=== PATIENT | female | born 1945 | race Two or more races ===

== ENCOUNTER 2016-11-11 15:39 | Inpatient (IN) | payer MEDICARE, OTHER ==
[~2016-11-11] VITALS: Ht 157.5 cm; Wt 90.5 kg
[~2016-11-11 15:39] MED LIST: ASPI-515 PO; Atorvastatin Calcium PO; Carvedilol PO; HUM100IN4 SQ-INSULIN; HUM100VI6 SC; INSU100I18 SC; INSU100V5 SQ-INSULIN; OMEP-110 PO; OMEP40CA6 PO; POLY17PO5 PO; SITA100T PO; TICA90TA PO; TRAM50TA2 PO; [UNRECOGNIZED DRUG - OTHER] PO; [UNRECOGNIZED DRUG - REMARK] PO
[2016-11-11] MEDS ORDERED: DEXTROSE 10% 1,000 ML IV SCH (16:22)
[2016-11-11 16:27] LABS: HEMOGLOBIN 12.4 g/dL (11.7-16.4)
[2016-11-11] MEDS ORDERED: SODIUM CHLORIDE FLUSH 10ML SYR IVF ONE (16:30)
[2016-11-11 16:39] LABS: BLOOD UREA NITROGEN 34 mg/dL (7-18)
[2016-11-11] MEDS ORDERED: INSU100I17 SQ-INSULIN ×2 (16:48)
[2016-11-11] MEDS ORDERED: LISI5TAB7 PO (16:50)
[2016-11-11] MEDS ORDERED: SITA100T PO (16:50)
[2016-11-11] MEDS ORDERED: SODIUM CHLORIDE FLUSH 10ML SYR IVF PRN (18:30)
[2016-11-11] MEDS ORDERED: POLYETHYLENE GLYCOL 17 GM PACKET PO PRN (20:00)
[2016-11-11] MEDS ORDERED: DOCUSATE 100 MG CAPSULE PO PRN (20:00)
[2016-11-11] MEDS ORDERED: HYDROcodone/APAP 5/325 TABLET PO PRN (20:00)
[2016-11-11] MEDS ORDERED: BISACODYL 10 MG SUPP PR PRN (20:00)
[2016-11-11] MEDS ORDERED: ONDANSETRON 2MG/ML, 2ML IVP PRN (20:00)
[2016-11-11] MEDS ORDERED: ENALAPRILAT 1.25 MG/ML, 2ML IVPush PRN (20:00)
[2016-11-11] MEDS ORDERED: ACETAMINOPHEN 325 MG TABLET PO PRN (20:00)
[2016-11-11] MEDS ORDERED: PROMETHAZINE 25 MG/ML, 1ML IM PRN (20:00)
[2016-11-11] MEDS ORDERED: LABETALOL 5MG/ML, 20ML IV PRN (20:00)
[2016-11-11 20:28] LABS: IS PT STATUS REG ER OR PRE ER? NO
[2016-11-11] MEDS: DEXTROSE 5% 1,000 ML IV SCH (21:05)
[2016-11-11] MEDS: ENOXAPARIN 40 MG/0.4 ML SQ SCH (21:06)
[2016-11-11] MEDS: TICAGRELOR 90 MG TABLET PO SCH (21:06)
[2016-11-11] MEDS: CEFTRIAXONE PMX 1GM/50ML 50 ML IV SCH (21:06)
[2016-11-11] MEDS: LISINOPRIL 5 MG TABLET PO SCH (21:06)
[2016-11-12 01:51] VITALS: BP 135/57
[2016-11-12 02:24] LABS: HEMOGLOBIN 11.3 g/dL (11.7-16.4)
[2016-11-12 02:37] LABS: ASPARTATE AMINO TRANSFERASE 12 U/L (15-37); BLOOD UREA NITROGEN 33 mg/dL (7-18)
[2016-11-12 02:41] LABS: IS PT STATUS REG ER OR PRE ER? NO
[2016-11-12] MEDS: DEXTROSE 5% 1,000 ML IV SCH (03:36)
[2016-11-12] MEDS: CARVEDILOL 3.125 MG TABLET PO SCH ×2 (06:29→17:16)
[2016-11-12 06:34] VITALS: BP 166/67
[2016-11-12 07:03] VITALS: BP 165/79
[2016-11-12] MEDS ORDERED: SODIUM CHLORIDE 0.9% 1,000 ML IV SCH (09:00)
[2016-11-12] MEDS: SENNA/DOCUSATE TABLET PO SCH (09:00)
[2016-11-12] MEDS: SODIUM CHLORIDE 0.9% 1,000 ML IV SCH ×2 (09:00→22:20)
[2016-11-12] MEDS: LISINOPRIL 5 MG TABLET PO SCH ×2 (09:05→20:21)
[2016-11-12] MEDS: ATORVASTATIN 40 MG TABLET PO SCH (09:05)
[2016-11-12] MEDS: ASPIRIN 81 MG TABLET EC PO SCH (09:05)
[2016-11-12] MEDS: OMEPRAZOLE 20 MG CAPSULE.DR PO SCH ×2 (09:06→17:17)
[2016-11-12] MEDS: TICAGRELOR 90 MG TABLET PO SCH ×2 (09:08→20:21)
[2016-11-12 12:45] VITALS: BP 135/74
[2016-11-12] MEDS ORDERED: DEXTROSE 10% 1,000 ML IV SCH (16:22)
[2016-11-12 19:37] VITALS: BP 150/68
[2016-11-12] MEDS: ENOXAPARIN 40 MG/0.4 ML SQ SCH (20:21)
[2016-11-12] MEDS: CEFTRIAXONE PMX 1GM/50ML 50 ML IV SCH (20:22)
[2016-11-13 01:31] VITALS: BP 168/81
[2016-11-13 06:19] VITALS: BP 163/77
[2016-11-13] MEDS: CARVEDILOL 3.125 MG TABLET PO SCH ×2 (06:20→16:48)
[2016-11-13] MEDS: INSULIN ASPART 100 UNITS/ML, PEN SQ-INSULIN SCH ×4 (08:00→21:25)
[2016-11-13] MEDS: ASPIRIN 81 MG TABLET EC PO SCH (08:33)
[2016-11-13] MEDS: OMEPRAZOLE 20 MG CAPSULE.DR PO SCH ×2 (08:33→16:48)
[2016-11-13] MEDS: ATORVASTATIN 40 MG TABLET PO SCH (08:33)
[2016-11-13] MEDS: TICAGRELOR 90 MG TABLET PO SCH ×2 (08:33→21:24)
[2016-11-13] MEDS: LISINOPRIL 5 MG TABLET PO SCH ×2 (08:33→21:24)
[2016-11-13] MEDS: SENNA/DOCUSATE TABLET PO SCH (09:00)
[2016-11-13] MEDS: SODIUM CHLORIDE 0.9% 1,000 ML IV SCH (11:40)
[2016-11-13 13:10] VITALS: BP 150/78
[2016-11-13 19:04] VITALS: BP 159/74
[2016-11-13] MEDS: CEFTRIAXONE PMX 1GM/50ML 50 ML IV SCH (21:24)
[2016-11-13] MEDS: ENOXAPARIN 40 MG/0.4 ML SQ SCH (21:24)
[2016-11-14 01:22] VITALS: BP 148/72
[2016-11-14] MEDS: CARVEDILOL 3.125 MG TABLET PO SCH ×2 (05:13→17:17)
[2016-11-14] MEDS: SODIUM CHLORIDE 0.9% 1,000 ML IV SCH (05:13)
[2016-11-14 06:45] VITALS: BP 125/68
[2016-11-14] MEDS: INSULIN ASPART 100 UNITS/ML, PEN SQ-INSULIN SCH ×4 (07:00→20:42)
[2016-11-14] MEDS: OMEPRAZOLE 20 MG CAPSULE.DR PO SCH ×2 (07:57→17:18)
[2016-11-14] MEDS: ASPIRIN 81 MG TABLET EC PO SCH (08:22)
[2016-11-14] MEDS: TICAGRELOR 90 MG TABLET PO SCH ×2 (08:22→20:39)
[2016-11-14] MEDS: SENNA/DOCUSATE TABLET PO SCH (08:22)
[2016-11-14] MEDS: ATORVASTATIN 40 MG TABLET PO SCH (08:22)
[2016-11-14] MEDS: LISINOPRIL 5 MG TABLET PO SCH ×2 (08:22→20:40)
[2016-11-14] MEDS: INSULIN NPH HUMAN 100 UNIT/ML, 3ML VIAL SQ-INSULIN SCH ×2 (10:49→20:41)
[2016-11-14 13:42] VITALS: BP 151/74
[2016-11-14 19:12] VITALS: BP 154/72
[2016-11-14] MEDS: CEFTRIAXONE PMX 1GM/50ML 50 ML IV SCH (19:54)
[2016-11-14] MEDS: ENOXAPARIN 40 MG/0.4 ML SQ SCH (19:54)
[2016-11-15 03:00] VITALS: BP 155/71
[2016-11-15] MEDS: INSULIN ASPART 100 UNITS/ML, PEN SQ-INSULIN SCH ×2 (06:29→13:01)
[2016-11-15] MEDS: CARVEDILOL 3.125 MG TABLET PO SCH (06:33)
[2016-11-15 06:36] VITALS: BP 161/65
[2016-11-15] MEDS: SENNA/DOCUSATE TABLET PO SCH (09:00)
[2016-11-15] MEDS: ATORVASTATIN 40 MG TABLET PO SCH (09:09)
[2016-11-15] MEDS: LISINOPRIL 5 MG TABLET PO SCH (09:09)
[2016-11-15] MEDS: ASPIRIN 81 MG TABLET EC PO SCH (09:09)
[2016-11-15] MEDS: TICAGRELOR 90 MG TABLET PO SCH (09:10)
[2016-11-15] MEDS: OMEPRAZOLE 20 MG CAPSULE.DR PO SCH (09:10)
[2016-11-15] MEDS ORDERED: NPH,100I4 SQ (12:54)
[2016-11-15] MEDS ORDERED: CEFD300C2 PO (12:57)
[2016-11-15 13:45] VITALS: BP 151/68
[2016-11-15] MEDS ORDERED: INSULIN NPH HUMAN 100 UNIT/ML, 3ML VIAL SQ-INSULIN SCH (17:00)
== END 2016-11-15 15:34 | disposition home health service (06) | DRG 637 ==
LOC: ED 17:11 → EDIP 18:08 → 4WST 20:23 → DCLOUNGE 11-15 15:00
PROVIDERS: ADMIT Internal Medicine; ATTEND Internal Medicine
DX: E11.649 Type 2 diabetes mellitus with hypoglycemia without coma (principal); G93.41 Metabolic encephalopathy; N39.0 Urinary tract infection, site not specified; I50.32 Chronic diastolic (congestive) heart failure; I13.0 Hypertensive heart and chronic kidney disease with heart failure and stage 1 through stage 4 chronic kidney disease, or unspecified chronic kidney disease; K92.0 Hematemesis; I82.409 Acute embolism and thrombosis of unspecified deep veins of unspecified lower extremity; I25.10 Atherosclerotic heart disease of native coronary artery without angina pectoris; E03.9 Hypothyroidism, unspecified; Z95.5 Presence of coronary angioplasty implant and graft; I11.0 Hypertensive heart disease with heart failure; E78.5 Hyperlipidemia, unspecified; K21.0 Gastro-esophageal reflux disease with esophagitis; N18.9 Chronic kidney disease, unspecified; E11.22 Type 2 diabetes mellitus with diabetic chronic kidney disease; Z79.4 Long term (current) use of insulin; I25.2 Old myocardial infarction; Z90.49 Acquired absence of other specified parts of digestive tract
CPT/HCPCS: 36415; 80048; 80053; 81001; 82040; 82962; 83036; 84439; 84443; 84484; 85025; 87077; 87086; 87186; 93005; 96365; 96366; J0696; J1650; J1815; J7070; J7030

== ENCOUNTER 2020-10-21 20:11 | Inpatient (IN) | payer MEDICARE ==
[~2020-10-21] VITALS: Ht 157.5 cm; Wt 95.7 kg
[~2020-10-21 20:11] MED LIST changes: +AMLO-211 PO; -ASPI-515 PO; +ASPI-963 PO; +ATOR-2 PO; +CARV12.543 PO; +CARV6.252 PO; +CEFD300C37 PO; +CLOP75TA52 PO; +ESCI10TA97 PO; +FAMO-79 PO; +FURO40TA6 PO; +INSU100I17 SQ-INSULIN; +ISOS30TA8 PO; +LISI-167 PO; +LISI40TA9 PO; +LISI5TAB7 PO; +METH10TA6 PO; +NPH,100I4 SQ; +OMEP40CA42 PO; -OMEP40CA6 PO; +SITA50TA PO
--- NOTE | 2020-10-21 20:30 | NUR ---
Pt BIBA with c/o several days of weakness and several GLF. PT states yesterday she fell and laid on the ground for several hours untill her daugher arrived. Pt denies hitting head or LOC. pt with no other stroke like symptoms. Pt had pacemaker placed about a month ago. Pt is now A&O x 3. calm and appropirate. Pt on monitor. Warm blanket given. VSS Will monitor.
[2020-10-21 21:13] LABS: BASOPHILS % (AUTO) 1 % (0-1); EOSINOPHILS % (AUTO) 0 % (1-7); LYMPHOCYTES % (AUTO) 15 % (22-44); MD NO; MEAN CORPUSCULAR HEMOGLOBIN 30.4 pg (27.0-34.8); MEAN CORPUSCULAR HGB CONC 33.1 g/dL (32.4-35.8); MEAN PLATELET VOLUME 8.5 fL (7.4-10.4); MONOCYTES % (AUTO) 8 % (2-9); NEUTROPHILS % (AUTO) 77 % (42-75); PLATELET COUNT 266 x10^3/uL (130-400); RED BLOOD COUNT 4.09 x10^6/uL (3.82-5.3); RED CELL DISTRIBUTION WIDTH 14.6 % (9.6-15.2)
[2020-10-21 21:25] LABS: ALANINE AMINOTRANSFERASE 16 U/L (12-78); ALBUMIN 3.4 g/dL (3.4-5.0); ANION GAP 11 mmol/L (5-15); CALCIUM 9.5 mg/dL (8.5-10.1); CHLORIDE 102 mmol/L (98-107)
[2020-10-21 21:30] LABS: ALKALINE PHOSPHATASE 104 U/L (45-117); BILIRUBIN,TOTAL 0.5 mg/dL (0.2-1.0); TOTAL PROTEIN 7.6 g/dL (6.4-8.2); TROPONIN I < 0.015 ng/mL (0.000-0.045)
--- NOTE | 2020-10-21 22:00 | NUR ---
REPORT FROM TRINA RAMIREZ
[2020-10-21 22:02] LABS: MICROSCOPIC INDICATED
[2020-10-21] MEDS ORDERED: CEFTRIAXONE PMX 1GM/50ML 50 ML ONE (22:21)
[2020-10-21] MEDS ORDERED: CEFTRIAXONE PMX 1GM/50ML 50 ML IV ONE (22:30)
[2020-10-21] MEDS ORDERED: SODIUM CHLORIDE 0.9% 1,000ML IVBOLUS ONE (22:30)
--- NOTE | 2020-10-21 23:38 | NUR ---
REPORT GIVEN TO LACI RAMIREZ
[2020-10-22 00:01] VITALS: BP 150/78
[2020-10-22] MEDS: HEPARIN 5,000 UNITS/ML, 1ML SQ SCH ×4 (01:05→23:57)
[2020-10-22] MEDS: SODIUM CHLORIDE 0.9% 1,000 ML IV SCH ×3 (01:42→22:26)
[2020-10-22 02:09] VITALS: BP 140/81
[2020-10-22 07:01] LABS: ANION GAP 9 mmol/L (5-15); CALCIUM 8.7 mg/dL (8.5-10.1); CHLORIDE 107 mmol/L (98-107); CREATININE 3.92 mg/dL (0.55-1.02)
[2020-10-22 07:23] VITALS: BP 135/80
[2020-10-22] MEDS ORDERED: FAMOTIDINE 20 MG TABLET PO SCH (09:00)
[2020-10-22] MEDS ORDERED: INSULIN NPH HUMAN 100 UNIT/ML, 3ML VIAL SQ-INSULIN SCH (09:00)
[2020-10-22] MEDS: ISOSORBIDE MONONITRATE ER 30 MG TABLET PO SCH (09:27)
[2020-10-22] MEDS: AMLODIPINE 10 MG TAB PO SCH (09:27)
[2020-10-22] MEDS: OMEPRAZOLE 20 MG CAPSULE.DR PO SCH ×2 (09:27→21:14)
[2020-10-22] MEDS: CLOPIDOGREL 75 MG TABLET PO SCH (09:28)
[2020-10-22] MEDS: ASPIRIN 81 MG TABLET EC PO SCH (09:28)
[2020-10-22] MEDS: ESCITALOPRAM 10MG TABLET PO SCH (09:28)
[2020-10-22] MEDS: LINAGLIPTIN 5 MG TAB PO SCH (09:28)
[2020-10-22] MEDS ORDERED: DEXTROSE 50%, 50ML SYRINGE IVPush PRN (10:30)
[2020-10-22] MEDS ORDERED: DEXTROSE 4 GM TAB.CHEW PO PRN (10:30)
[2020-10-22] MEDS ORDERED: GLUCAGON 1 MG IM PRN (10:30)
[2020-10-22] MEDS: INSULIN LISPRO 100 UNITS/ML, PEN SQ-INSULIN SCH ×3 (13:51→21:19)
[2020-10-22 13:56] VITALS: BP 102/58
[2020-10-22] MEDS ORDERED: CEFTRIAXONE PMX 1GM/50ML 50 ML IV SCH (18:00)
[2020-10-22 18:48] VITALS: BP 106/63
[2020-10-22] MEDS: ATORVASTATIN 80 MG TABLET PO SCH (21:14)
[2020-10-22] MEDS: FAMOTIDINE 20 MG TABLET PO SCH (21:14)
[2020-10-22] MEDS: SODIUM CHLORIDE FLUSH 10ML SYR IVF SCH (21:19)
[2020-10-22] MEDS: INSULIN GLARGINE 100 UNITS/ML, PEN SQ-INSULIN SCH (21:39)
[2020-10-23 00:56] VITALS: BP 132/68
[2020-10-23] MEDS: SODIUM CHLORIDE 0.9% 1,000 ML IV SCH ×2 (05:52→16:30)
[2020-10-23 05:56] LABS: ALBUMIN 2.5 g/dL (3.4-5.0); ANION GAP 8 mmol/L (5-15); CALCIUM 8.2 mg/dL (8.5-10.1); CHLORIDE 114 mmol/L (98-107); CREATININE 2.76 mg/dL (0.55-1.02)
[2020-10-23] MEDS: ISOSORBIDE MONONITRATE ER 30 MG TABLET PO SCH (08:35)
[2020-10-23] MEDS: ESCITALOPRAM 10MG TABLET PO SCH (08:35)
[2020-10-23] MEDS: ASPIRIN 81 MG TABLET EC PO SCH (08:35)
[2020-10-23] MEDS: OMEPRAZOLE 20 MG CAPSULE.DR PO SCH ×2 (08:35→21:08)
[2020-10-23] MEDS: AMLODIPINE 10 MG TAB PO SCH (08:35)
[2020-10-23] MEDS: HEPARIN 5,000 UNITS/ML, 1ML SQ SCH ×2 (08:35→16:30)
[2020-10-23] MEDS: CLOPIDOGREL 75 MG TABLET PO SCH (08:35)
[2020-10-23] MEDS: LINAGLIPTIN 5 MG TAB PO SCH (08:35)
[2020-10-23 08:36] VITALS: BP 131/74
[2020-10-23] MEDS: SODIUM CHLORIDE FLUSH 10ML SYR IVF SCH ×2 (08:36→21:08)
[2020-10-23] MEDS: INSULIN LISPRO 100 UNITS/ML, PEN SQ-INSULIN SCH ×4 (09:35→21:13)
[2020-10-23 13:41] VITALS: BP 109/63
[2020-10-23] MEDS ORDERED: ACETAMINOPHEN 325 MG TABLET PO PRN (17:00)
[2020-10-23] MEDS ORDERED: CEFTRIAXONE PMX 1GM/50ML 50 ML IV SCH (18:00)
[2020-10-23 20:31] VITALS: BP 152/73
[2020-10-23] MEDS: FAMOTIDINE 20 MG TABLET PO SCH (21:07)
[2020-10-23] MEDS: ATORVASTATIN 80 MG TABLET PO SCH (21:08)
[2020-10-23] MEDS: INSULIN GLARGINE 100 UNITS/ML, PEN SQ-INSULIN SCH (21:12)
[2020-10-24] MEDS: SODIUM CHLORIDE 0.9% 1,000 ML IV SCH ×3 (01:46→22:33)
[2020-10-24] MEDS: HEPARIN 5,000 UNITS/ML, 1ML SQ SCH ×3 (01:47→16:30)
[2020-10-24 01:54] VITALS: BP 156/73
[2020-10-24 05:12] LABS: ALBUMIN 2.4 g/dL (3.4-5.0); ANION GAP 7 mmol/L (5-15); CALCIUM 8.1 mg/dL (8.5-10.1); CHLORIDE 117 mmol/L (98-107); CREATININE 2.43 mg/dL (0.55-1.02)
[2020-10-24 08:54] VITALS: BP 151/68
[2020-10-24] MEDS: SODIUM CHLORIDE FLUSH 10ML SYR IVF SCH ×2 (09:00→21:00)
[2020-10-24] MEDS: ASPIRIN 81 MG TABLET EC PO SCH (09:14)
[2020-10-24] MEDS: AMLODIPINE 10 MG TAB PO SCH (09:14)
[2020-10-24] MEDS: OMEPRAZOLE 20 MG CAPSULE.DR PO SCH ×2 (09:14→21:58)
[2020-10-24] MEDS: LINAGLIPTIN 5 MG TAB PO SCH (09:15)
[2020-10-24] MEDS: ESCITALOPRAM 10MG TABLET PO SCH (09:15)
[2020-10-24] MEDS: CLOPIDOGREL 75 MG TABLET PO SCH (09:15)
[2020-10-24] MEDS: INSULIN LISPRO 100 UNITS/ML, PEN SQ-INSULIN SCH ×4 (09:15→22:04)
[2020-10-24] MEDS: ISOSORBIDE MONONITRATE ER 30 MG TABLET PO SCH (09:15)
[2020-10-24 12:42] VITALS: BP 145/60
[2020-10-24 19:38] VITALS: BP 154/73
[2020-10-24] MEDS: FAMOTIDINE 20 MG TABLET PO SCH (21:57)
[2020-10-24] MEDS: ATORVASTATIN 80 MG TABLET PO SCH (21:57)
[2020-10-24] MEDS: INSULIN GLARGINE 100 UNITS/ML, PEN SQ-INSULIN SCH (21:58)
[2020-10-25] MEDS: HEPARIN 5,000 UNITS/ML, 1ML SQ SCH ×3 (00:44→16:44)
[2020-10-25 02:23] VITALS: BP 138/75
[2020-10-25 06:13] LABS: ANION GAP 5 mmol/L (5-15); CHLORIDE 120 mmol/L (98-107)
[2020-10-25 06:17] LABS: ALBUMIN 2.4 g/dL (3.4-5.0); CALCIUM 8.7 mg/dL (8.5-10.1); CREATININE 1.88 mg/dL (0.55-1.02)
[2020-10-25] MEDS: INSULIN LISPRO 100 UNITS/ML, PEN SQ-INSULIN SCH ×4 (07:00→20:54)
[2020-10-25] MEDS: SODIUM CHLORIDE 0.9% 1,000 ML IV SCH (07:09)
[2020-10-25 07:12] VITALS: BP 149/71
[2020-10-25] MEDS: ISOSORBIDE MONONITRATE ER 30 MG TABLET PO SCH (08:43)
[2020-10-25] MEDS: CLOPIDOGREL 75 MG TABLET PO SCH (08:44)
[2020-10-25] MEDS: OMEPRAZOLE 20 MG CAPSULE.DR PO SCH ×2 (08:44→20:52)
[2020-10-25] MEDS: AMLODIPINE 10 MG TAB PO SCH (08:44)
[2020-10-25] MEDS: ESCITALOPRAM 10MG TABLET PO SCH (08:44)
[2020-10-25] MEDS: LINAGLIPTIN 5 MG TAB PO SCH (08:44)
[2020-10-25] MEDS: ASPIRIN 81 MG TABLET EC PO SCH (08:44)
[2020-10-25] MEDS: SODIUM CHLORIDE FLUSH 10ML SYR IVF SCH ×2 (08:51→20:54)
[2020-10-25 13:35] VITALS: BP 147/73
[2020-10-25 19:18] VITALS: BP 145/77
[2020-10-25] MEDS: ATORVASTATIN 80 MG TABLET PO SCH (20:52)
[2020-10-25] MEDS: FAMOTIDINE 20 MG TABLET PO SCH (20:52)
[2020-10-25] MEDS: INSULIN GLARGINE 100 UNITS/ML, PEN SQ-INSULIN SCH (20:52)
[2020-10-26] MEDS: HEPARIN 5,000 UNITS/ML, 1ML SQ SCH ×2 (00:11→08:09)
[2020-10-26 01:24] VITALS: BP 147/72
[2020-10-26] MEDS: INSULIN LISPRO 100 UNITS/ML, PEN SQ-INSULIN SCH ×2 (07:00→11:46)
[2020-10-26 07:12] VITALS: BP 151/71
[2020-10-26] MEDS: ESCITALOPRAM 10MG TABLET PO SCH (08:09)
[2020-10-26] MEDS: AMLODIPINE 10 MG TAB PO SCH (08:09)
[2020-10-26] MEDS: LINAGLIPTIN 5 MG TAB PO SCH (08:09)
[2020-10-26] MEDS: CLOPIDOGREL 75 MG TABLET PO SCH (08:10)
[2020-10-26] MEDS: ISOSORBIDE MONONITRATE ER 30 MG TABLET PO SCH (08:10)
[2020-10-26] MEDS: ASPIRIN 81 MG TABLET EC PO SCH (08:10)
[2020-10-26] MEDS: OMEPRAZOLE 20 MG CAPSULE.DR PO SCH (08:10)
[2020-10-26] MEDS: SODIUM CHLORIDE FLUSH 10ML SYR IVF SCH (08:13)
[2020-10-26] MEDS ORDERED: INSU100I13 SQ-INSULIN (12:18)
[2020-10-26] MEDS ORDERED: SITA25TA PO (12:18)
[2020-10-26 12:58] VITALS: BP 145/73
== END 2020-10-26 16:34 | DRG 683 ==
LOC: ED 22:12 → EDIP 23:10 → 4EST 23:50
PROVIDERS: ADMIT Family Medicine; ATTEND Family Medicine
DX: N17.9 Acute kidney failure, unspecified (principal); N30.00 Acute cystitis without hematuria; B96.20 Unspecified Escherichia coli [E. coli] as the cause of diseases classified elsewhere; E11.22 Type 2 diabetes mellitus with diabetic chronic kidney disease; E11.65 Type 2 diabetes mellitus with hyperglycemia; F32.9 Major depressive disorder, single episode, unspecified; E86.0 Dehydration; G47.33 Obstructive sleep apnea (adult) (pediatric); I12.9 Hypertensive chronic kidney disease with stage 1 through stage 4 chronic kidney disease, or unspecified chronic kidney disease; M54.5 Low back pain; R29.6 Repeated falls; B95.2 Enterococcus as the cause of diseases classified elsewhere; I25.10 Atherosclerotic heart disease of native coronary artery without angina pectoris; I49.5 Sick sinus syndrome; N18.9 Chronic kidney disease, unspecified; Z79.02 Long term (current) use of antithrombotics/antiplatelets; Z79.4 Long term (current) use of insulin; Z80.3 Family history of malignant neoplasm of breast; Z95.0 Presence of cardiac pacemaker; Z95.5 Presence of coronary angioplasty implant and graft; Z91.19 Patient's noncompliance with other medical treatment and regimen; Z74.01 Bed confinement status
CPT/HCPCS: 36415; 80048; 80053; 80069; 81001; 82550; 82962; 84484; 85025; 87077; 87086; 87186; 93005; 96374; 99291; G0378; J0696; J1644; J1815; J7030

== ENCOUNTER 2020-12-16 23:49 | Emergency (ER) | payer MEDICARE ==
[~2020-12-16] VITALS: Ht 157.5 cm; Wt 88.0 kg
[~2020-12-16 23:49] MED LIST changes: +INSU100I13 SQ-INSULIN; +SITA25TA PO
[2020-12-17] MEDS ORDERED: HYDROcodone/APAP 5/325 TABLET PO ONE
[2020-12-17] MEDS ORDERED: CYCLOBENZAPRINE 10 MG TABLET PO ONE
[2020-12-17] MEDS ORDERED: KETOROLAC 30 MG/1 ML IM ONE
--- NOTE | 2020-12-17 | NUR ---
THIS IS A 75 YO F BIB EMS FROM HOME W/ C/O INTERMITTENT LT HIP PAIN. PT DENIES TRAUMA/FALL/INJ. PT REPORTS HAS HX OF FALLS BUT NONE X1 MONTH SINCE DC FROM [place]. PT REPORTS HAD PACE PLACED X2 MONTHS AGO. 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 PT HYPERTENSIVE, OTHER VS WDL. NADN. AT BEDSIDE.
[2020-12-17] MEDS ORDERED: HYDROcodone/APAP 5/325 TABLET ONE (00:09)
[2020-12-17] MEDS ORDERED: KETOROLAC 30 MG/1 ML ONE ×2 (00:09→00:11)
[2020-12-17] MEDS ORDERED: CYCLOBENZAPRINE 10 MG TABLET ONE (00:09)
[2020-12-17 00:55] VITALS: BP 209/94
--- NOTE | 2020-12-17 01:05 | NUR ---
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 RESP EVEN AND UNLABORED, NADN.
--- NOTE | 2020-12-17 01:17 | NUR ---
[facility] ([facility]) [phone] TO COMPTROLLER PT IN APPROX 30 MINUTES.
--- NOTE | 2020-12-17 02:30 | NUR ---
TELEPHONE CALL FROM DAUGHTER, NO LONGER ABLE TO PROVIDE RIDE. REQUESTING WE GIVE PT TAXI VOUCHER AND SHE IS AT HOME TO MEET PT. PT VERBALIZED UNDERSTANDING OF DC INSTRUCTIONS, TRANSFERED TO WHEELCHAIR STEADILY. PT PROVIDED W/ TAXI VOCUHER TO [address] PT EDUCATED ON IMPORTANCE OF TAKING HOME BP MEDS. RESP EVEN AND UNLABORED, DIANA.
== END 2020-12-17 02:34 | disposition home or self-care (01) ==
LOC: ED 12-17 00:01
DX: M54.32 Sciatica, left side (principal); I10 Essential (primary) hypertension; K21.9 Gastro-esophageal reflux disease without esophagitis; I25.10 Atherosclerotic heart disease of native coronary artery without angina pectoris; E11.9 Type 2 diabetes mellitus without complications; I25.2 Old myocardial infarction
CPT/HCPCS: 96372; 99283; J1885

== ENCOUNTER 2020-12-23 17:56 | Inpatient (IN) | payer MEDICARE ==
[~2020-12-23] VITALS: Ht 157.5 cm; Wt 86.4 kg
[2020-12-23] MEDS ORDERED: SODIUM CHLORIDE FLUSH 10ML SYR IVF ONE (18:00)
[2020-12-23] MEDS ORDERED: SODIUM CHLORIDE 0.9% 1,000ML IVBOLUS ONE (18:00)
[2020-12-23 18:30] LABS: ALANINE AMINOTRANSFERASE 11 U/L (12-78); ALBUMIN 2.8 g/dL (3.4-5.0); ANION GAP 8 mmol/L (5-15); BASOPHILS % (AUTO) 0 % (0-1); CALCIUM 9.3 mg/dL (8.5-10.1); CHLORIDE 105 mmol/L (98-107); CREATININE 2.46 mg/dL (0.55-1.02); EOSINOPHILS % (AUTO) 3 % (1-7); LYMPHOCYTES % (AUTO) 13 % (22-44); MEAN CORPUSCULAR HGB CONC 33.6 g/dL (32.4-35.8); MEAN PLATELET VOLUME 8.1 fL (7.4-10.4); MONOCYTES % (AUTO) 6 % (2-9); NEUTROPHILS % (AUTO) 78 % (42-75); PLATELET COUNT 256 x10^3/uL (130-400); RED BLOOD COUNT 4.16 x10^6/uL (3.82-5.3); RED CELL DISTRIBUTION WIDTH 12.9 % (9.6-15.2)
--- NOTE | 2020-12-23 18:30 | NUR ---
PT BIB EMS FOR LEFT SIDED HIP PAIN THAT PREVENTS HER FROM MOVING AND CAUSED HER TO FALL TODAY. PT STATES THE PAIN STARTED PRIOR TO THE FALL AND HAS BEEN PRESENT FOR A FEW DAYS. PT UNSURE IF THE PAIN IN HER HIP HAS BEEN FROM PREVIOUS FALLS. PT HAS BEEN FALLING MORE AND MORE LATELY DUE TO WEAKNESS AND SORENESS WITH MOVEMENT. PT RECENTLY M[facility].
[2020-12-23 18:34] LABS: ALKALINE PHOSPHATASE 126 U/L (45-117); BILIRUBIN,TOTAL 0.4 mg/dL (0.2-1.0); TOTAL PROTEIN 7.2 g/dL (6.4-8.2); TROPONIN I < 0.015 ng/mL (0.000-0.045)
[2020-12-23 18:52] LABS: MD NO
[2020-12-23 19:30] LABS: MICROSCOPIC AUTO
[2020-12-23] MEDS ORDERED: CEFTRIAXONE 1,000 MG in DEXTROSE 5% 50 ML IVPB ONE (20:00)
--- NOTE | 2020-12-23 20:00 | NUR ---
pt calm and quiet and cath ua sent to lab. pt tolerated procedure well, done under sterile technique. pt to be admitted.
[2020-12-23 20:58] VITALS: BP 178/113
[2020-12-23] MEDS ORDERED: POLYETHYLENE GLYCOL 17 GM PACKET PO PRN (21:00)
[2020-12-23] MEDS ORDERED: ACETAMINOPHEN 325 MG TABLET PO PRN (21:00)
[2020-12-23] MEDS ORDERED: ONDANSETRON ODT 4 MG PO PRN (21:00)
[2020-12-23] MEDS ORDERED: BISACODYL 10 MG SUPP PR PRN (21:00)
[2020-12-23] MEDS: SODIUM CHLORIDE 0.9% 1,000 ML IV SCH (21:50)
[2020-12-23] MEDS: CEFTRIAXONE 1,000 MG in DEXTROSE 5% 50 ML IVPB SCH (22:29)
[2020-12-23] MEDS: INSULIN GLARGINE 100 UNITS/ML, PEN SQ-INSULIN SCH (22:29)
[2020-12-23] MEDS: ATORVASTATIN 80 MG TABLET PO SCH (22:29)
[2020-12-23 22:56] VITALS: BP 178/113
[2020-12-24] MEDS ORDERED: hydrALAzine 20 MG/ML, 1ML IV PRN
[2020-12-24 00:38] VITALS: BP 168/88
[2020-12-24 05:20] LABS: BASOPHILS % (AUTO) 1 % (0-1); EOSINOPHILS % (AUTO) 3 % (1-7); LYMPHOCYTES % (AUTO) 19 % (22-44); MEAN CORPUSCULAR HEMOGLOBIN 29.9 pg (27.0-34.8); MEAN CORPUSCULAR HGB CONC 33.4 g/dL (32.4-35.8); MEAN PLATELET VOLUME 7.9 fL (7.4-10.4); MONOCYTES % (AUTO) 8 % (2-9); NEUTROPHILS % (AUTO) 70 % (42-75); PLATELET COUNT 250 x10^3/uL (130-400); RED BLOOD COUNT 3.99 x10^6/uL (3.82-5.3); RED CELL DISTRIBUTION WIDTH 12.8 % (9.6-15.2)
[2020-12-24 05:22] LABS: MD NO
[2020-12-24 05:32] LABS: CHLORIDE 109 mmol/L (98-107)
[2020-12-24 05:36] LABS: ANION GAP 2 mmol/L (5-15); CALCIUM 8.9 mg/dL (8.5-10.1)
[2020-12-24 06:38] VITALS: BP 171/86
[2020-12-24] MEDS: ASPIRIN 81 MG TABLET EC PO SCH (07:59)
[2020-12-24] MEDS: CLOPIDOGREL 75 MG TABLET PO SCH (07:59)
[2020-12-24] MEDS: LINAGLIPTIN 5 MG TAB PO SCH (07:59)
[2020-12-24] MEDS: ESCITALOPRAM 10MG TABLET PO SCH (07:59)
[2020-12-24] MEDS: SENNA/DOCUSATE TABLET PO SCH (08:00)
[2020-12-24] MEDS: ISOSORBIDE MONONITRATE ER 30 MG TABLET PO SCH (08:00)
[2020-12-24] MEDS: AMLODIPINE 10 MG TAB PO SCH (08:00)
[2020-12-24] MEDS: FUROSEMIDE 40 MG TABLET PO SCH (08:00)
[2020-12-24] MEDS ORDERED: OMEPRAZOLE 20 MG CAPSULE.DR PO SCH (11:00)
[2020-12-24 14:12] VITALS: BP 104/59
[2020-12-24] MEDS: SODIUM CHLORIDE 0.9% 1,000 ML IV SCH (16:44)
[2020-12-24 18:29] VITALS: BP 125/70
[2020-12-24] MEDS: CEFTRIAXONE 1,000 MG in DEXTROSE 5% 50 ML IVPB SCH (21:02)
[2020-12-24] MEDS: ATORVASTATIN 80 MG TABLET PO SCH (21:02)
[2020-12-24] MEDS: INSULIN GLARGINE 100 UNITS/ML, PEN SQ-INSULIN SCH (21:05)
[2020-12-25 00:33] VITALS: BP 150/76
[2020-12-25 07:02] VITALS: BP 148/80
[2020-12-25] MEDS: ASPIRIN 81 MG TABLET EC PO SCH (08:46)
[2020-12-25] MEDS: FUROSEMIDE 40 MG TABLET PO SCH (08:46)
[2020-12-25] MEDS: LINAGLIPTIN 5 MG TAB PO SCH (08:46)
[2020-12-25] MEDS: AMLODIPINE 10 MG TAB PO SCH (08:47)
[2020-12-25] MEDS: ESCITALOPRAM 10MG TABLET PO SCH (08:47)
[2020-12-25] MEDS: SENNA/DOCUSATE TABLET PO SCH (08:47)
[2020-12-25] MEDS: CLOPIDOGREL 75 MG TABLET PO SCH (08:47)
[2020-12-25] MEDS: ISOSORBIDE MONONITRATE ER 30 MG TABLET PO SCH (08:47)
[2020-12-25] MEDS: PANTOPRAZOLE 40MG TABLET PO SCH (08:47)
[2020-12-25 13:00] VITALS: BP 118/66
[2020-12-25] MEDS: SODIUM CHLORIDE 0.9% 1,000 ML IV SCH (13:21)
[2020-12-25 20:32] VITALS: BP 122/63
[2020-12-25] MEDS: CEFTRIAXONE 1,000 MG in DEXTROSE 5% 50 ML IVPB SCH (22:09)
[2020-12-25] MEDS: INSULIN GLARGINE 100 UNITS/ML, PEN SQ-INSULIN SCH (22:11)
[2020-12-25] MEDS: ATORVASTATIN 80 MG TABLET PO SCH (23:05)
[2020-12-26 00:36] VITALS: BP 129/66
[2020-12-26 06:25] VITALS: BP 128/74
[2020-12-26] MEDS: ASPIRIN 81 MG TABLET EC PO SCH (07:59)
[2020-12-26] MEDS: SENNA/DOCUSATE TABLET PO SCH (07:59)
[2020-12-26] MEDS: FUROSEMIDE 40 MG TABLET PO SCH (07:59)
[2020-12-26] MEDS: PANTOPRAZOLE 40MG TABLET PO SCH (08:00)
[2020-12-26] MEDS: AMLODIPINE 10 MG TAB PO SCH (08:00)
[2020-12-26] MEDS: ESCITALOPRAM 10MG TABLET PO SCH (08:00)
[2020-12-26] MEDS: CLOPIDOGREL 75 MG TABLET PO SCH (08:00)
[2020-12-26] MEDS: LINAGLIPTIN 5 MG TAB PO SCH (08:00)
[2020-12-26] MEDS: ISOSORBIDE MONONITRATE ER 30 MG TABLET PO SCH (08:00)
[2020-12-26] MEDS: SODIUM CHLORIDE 0.9% 1,000 ML IV SCH (08:11)
[2020-12-26 10:56] LABS: BASOPHILS % (AUTO) 1 % (0-1); EOSINOPHILS % (AUTO) 8 % (1-7); LYMPHOCYTES % (AUTO) 20 % (22-44); MEAN CORPUSCULAR HEMOGLOBIN 29.3 pg (27.0-34.8); MEAN CORPUSCULAR HGB CONC 32.6 g/dL (32.4-35.8); MONOCYTES % (AUTO) 7 % (2-9); NEUTROPHILS % (AUTO) 65 % (42-75); PLATELET COUNT 246 x10^3/uL (130-400); RED BLOOD COUNT 3.75 x10^6/uL (3.82-5.3)
[2020-12-26 11:08] LABS: ALANINE AMINOTRANSFERASE 10 U/L (12-78); ALBUMIN 2.3 g/dL (3.4-5.0); ANION GAP 5 mmol/L (5-15); CALCIUM 8.8 mg/dL (8.5-10.1); CHLORIDE 108 mmol/L (98-107)
[2020-12-26 11:10] LABS: ALKALINE PHOSPHATASE 114 U/L (45-117); BILIRUBIN,TOTAL 0.2 mg/dL (0.2-1.0)
[2020-12-26 11:13] LABS: MD NO
[2020-12-26 12:27] VITALS: BP 120/74
[2020-12-26 18:43] VITALS: BP 123/65
[2020-12-26] MEDS: ATORVASTATIN 80 MG TABLET PO SCH (20:54)
[2020-12-26] MEDS: CEFTRIAXONE 1,000 MG in DEXTROSE 5% 50 ML IVPB SCH (20:54)
[2020-12-26] MEDS: INSULIN GLARGINE 100 UNITS/ML, PEN SQ-INSULIN SCH (21:00)
[2020-12-27 00:42] VITALS: BP 153/63
[2020-12-27 06:51] VITALS: BP 168/70
[2020-12-27 07:44] LABS: BASOPHILS % (AUTO) 1 % (0-1); EOSINOPHILS % (AUTO) 8 % (1-7); LYMPHOCYTES % (AUTO) 21 % (22-44); MEAN CORPUSCULAR HEMOGLOBIN 29.7 pg (27.0-34.8); MEAN CORPUSCULAR HGB CONC 32.9 g/dL (32.4-35.8); MEAN PLATELET VOLUME 7.8 fL (7.4-10.4); MONOCYTES % (AUTO) 7 % (2-9); NEUTROPHILS % (AUTO) 64 % (42-75); PLATELET COUNT 248 x10^3/uL (130-400); RED BLOOD COUNT 3.89 x10^6/uL (3.82-5.3); RED CELL DISTRIBUTION WIDTH 12.9 % (9.6-15.2)
[2020-12-27 07:50] LABS: MD NO
[2020-12-27 07:56] LABS: ALANINE AMINOTRANSFERASE 10 U/L (12-78); ALBUMIN 2.5 g/dL (3.4-5.0); ANION GAP 4 mmol/L (5-15); CHLORIDE 110 mmol/L (98-107); CREATININE 2.26 mg/dL (0.55-1.02)
[2020-12-27 07:58] LABS: ALKALINE PHOSPHATASE 131 U/L (45-117); BILIRUBIN,TOTAL 0.2 mg/dL (0.2-1.0); TOTAL PROTEIN 6.4 g/dL (6.4-8.2)
[2020-12-27] MEDS: INSULIN LISPRO 100 UNITS/ML, PEN SQ-INSULIN SCH ×4 (07:58→21:00)
[2020-12-27] MEDS: FUROSEMIDE 40 MG TABLET PO SCH (08:49)
[2020-12-27] MEDS: ESCITALOPRAM 10MG TABLET PO SCH (08:49)
[2020-12-27] MEDS: AMLODIPINE 10 MG TAB PO SCH (08:49)
[2020-12-27] MEDS: CLOPIDOGREL 75 MG TABLET PO SCH (08:49)
[2020-12-27] MEDS: SENNA/DOCUSATE TABLET PO SCH (08:49)
[2020-12-27] MEDS: ASPIRIN 81 MG TABLET EC PO SCH (08:49)
[2020-12-27] MEDS: PANTOPRAZOLE 40MG TABLET PO SCH (08:49)
[2020-12-27] MEDS: LINAGLIPTIN 5 MG TAB PO SCH (08:50)
[2020-12-27] MEDS: ISOSORBIDE MONONITRATE ER 30 MG TABLET PO SCH (08:50)
[2020-12-27] MEDS: SODIUM CHLORIDE 0.9% 1,000 ML IV SCH (08:54)
[2020-12-27 14:00] VITALS: BP 108/50
[2020-12-27 20:00] VITALS: BP 117/55
[2020-12-27] MEDS: ATORVASTATIN 80 MG TABLET PO SCH (21:04)
[2020-12-27] MEDS: CEFTRIAXONE 1,000 MG in DEXTROSE 5% 50 ML IVPB SCH (21:04)
[2020-12-27] MEDS: INSULIN GLARGINE 100 UNITS/ML, PEN SQ-INSULIN SCH (21:10)
[2020-12-28 01:39] VITALS: BP 136/67
[2020-12-28 06:55] VITALS: BP 145/80
[2020-12-28] MEDS: SODIUM CHLORIDE 0.9% 1,000 ML IV SCH (07:00)
[2020-12-28] MEDS: INSULIN LISPRO 100 UNITS/ML, PEN SQ-INSULIN SCH ×4 (07:00→21:28)
[2020-12-28] MEDS: ESCITALOPRAM 10MG TABLET PO SCH (08:48)
[2020-12-28] MEDS: LINAGLIPTIN 5 MG TAB PO SCH (08:48)
[2020-12-28] MEDS: ASPIRIN 81 MG TABLET EC PO SCH (08:48)
[2020-12-28] MEDS: HEPARIN 5,000 UNITS/ML, 1ML SQ SCH ×2 (08:48→16:50)
[2020-12-28] MEDS: FUROSEMIDE 40 MG TABLET PO SCH (08:48)
[2020-12-28] MEDS: CLOPIDOGREL 75 MG TABLET PO SCH (08:48)
[2020-12-28] MEDS: AMLODIPINE 10 MG TAB PO SCH (08:48)
[2020-12-28] MEDS: ISOSORBIDE MONONITRATE ER 30 MG TABLET PO SCH (08:48)
[2020-12-28] MEDS: SENNA/DOCUSATE TABLET PO SCH (09:00)
[2020-12-28 13:30] VITALS: BP 123/69
[2020-12-28 19:08] VITALS: BP 159/78
[2020-12-28] MEDS: ATORVASTATIN 80 MG TABLET PO SCH (21:27)
[2020-12-28] MEDS: CEFTRIAXONE 1,000 MG in DEXTROSE 5% 50 ML IVPB SCH (21:28)
[2020-12-28] MEDS: INSULIN GLARGINE 100 UNITS/ML, PEN SQ-INSULIN SCH (21:29)
[2020-12-29] MEDS: HEPARIN 5,000 UNITS/ML, 1ML SQ SCH ×3 (00:03→16:28)
[2020-12-29 01:02] VITALS: BP 133/77
[2020-12-29 05:24] LABS: ANION GAP 3 mmol/L (5-15); CALCIUM 9.4 mg/dL (8.5-10.1); CHLORIDE 108 mmol/L (98-107); CREATININE 2.34 mg/dL (0.55-1.02)
[2020-12-29 06:35] VITALS: BP 129/75
[2020-12-29] MEDS: INSULIN LISPRO 100 UNITS/ML, PEN SQ-INSULIN SCH ×4 (07:36→20:54)
[2020-12-29] MEDS: FUROSEMIDE 40 MG TABLET PO SCH (08:48)
[2020-12-29] MEDS: CLOPIDOGREL 75 MG TABLET PO SCH (08:48)
[2020-12-29] MEDS: ASPIRIN 81 MG TABLET EC PO SCH (08:48)
[2020-12-29] MEDS: ISOSORBIDE MONONITRATE ER 30 MG TABLET PO SCH (08:48)
[2020-12-29] MEDS: ESCITALOPRAM 10MG TABLET PO SCH (08:48)
[2020-12-29] MEDS: LINAGLIPTIN 5 MG TAB PO SCH (08:48)
[2020-12-29] MEDS: AMLODIPINE 10 MG TAB PO SCH (08:48)
[2020-12-29] MEDS: SENNA/DOCUSATE TABLET PO SCH (08:49)
[2020-12-29 13:01] VITALS: BP 102/62
[2020-12-29 20:00] VITALS: BP_SYST 126; BP_SYST 141; BP_DIAS 76; BP_DIAS 80
[2020-12-29] MEDS: ATORVASTATIN 80 MG TABLET PO SCH (20:53)
[2020-12-29] MEDS: CEFTRIAXONE 1,000 MG in DEXTROSE 5% 50 ML IVPB SCH (20:53)
[2020-12-29] MEDS: INSULIN GLARGINE 100 UNITS/ML, PEN SQ-INSULIN SCH (20:54)
[2020-12-30] MEDS: HEPARIN 5,000 UNITS/ML, 1ML SQ SCH ×2 (00:03→07:16)
[2020-12-30 02:00] VITALS: BP 146/75
[2020-12-30 07:11] VITALS: BP 132/81
[2020-12-30] MEDS: INSULIN LISPRO 100 UNITS/ML, PEN SQ-INSULIN SCH ×2 (07:16→11:14)
[2020-12-30] MEDS: SENNA/DOCUSATE TABLET PO SCH (09:28)
[2020-12-30] MEDS: ISOSORBIDE MONONITRATE ER 30 MG TABLET PO SCH (09:28)
[2020-12-30] MEDS: ESCITALOPRAM 10MG TABLET PO SCH (09:28)
[2020-12-30] MEDS: FUROSEMIDE 40 MG TABLET PO SCH (09:28)
[2020-12-30] MEDS: ASPIRIN 81 MG TABLET EC PO SCH (09:28)
[2020-12-30] MEDS: AMLODIPINE 10 MG TAB PO SCH (09:28)
[2020-12-30] MEDS: LINAGLIPTIN 5 MG TAB PO SCH (09:28)
[2020-12-30] MEDS: CLOPIDOGREL 75 MG TABLET PO SCH (09:28)
[2020-12-30 12:41] VITALS: BP 110/69
[2020-12-30] MEDS ORDERED: ACID1TAB7 PO (13:03)
[2020-12-30] MEDS ORDERED: INSU100I11 SQ-INSULIN (13:11)
[2020-12-30] MEDS ORDERED: INSU100I13 SQ-INSULIN (13:11)
[2020-12-30] MEDS ORDERED: LACTOBACILLUS CHEW TABLET PO SCH (16:00)
== END 2020-12-30 15:24 | DRG 682 ==
LOC: ED 19:15 → 3N 20:40
PROVIDERS: ADMIT Internal Medicine; ATTEND Internal Medicine
PROC: 0T9B30Z Drainage of Bladder with Drainage Device, Percutaneous Approach (ICD-10-PCS; principal; 2020-12-23)
DX: N17.0 Acute kidney failure with tubular necrosis (principal); G93.41 Metabolic encephalopathy; Z16.11 Resistance to penicillins; N13.6 Pyonephrosis; N18.4 Chronic kidney disease, stage 4 (severe); B96.20 Unspecified Escherichia coli [E. coli] as the cause of diseases classified elsewhere; E11.22 Type 2 diabetes mellitus with diabetic chronic kidney disease; E11.65 Type 2 diabetes mellitus with hyperglycemia; E78.5 Hyperlipidemia, unspecified; E86.0 Dehydration; E88.09 Other disorders of plasma-protein metabolism, not elsewhere classified; N30.91 Cystitis, unspecified with hematuria; M54.30 Sciatica, unspecified side; I25.10 Atherosclerotic heart disease of native coronary artery without angina pectoris; I12.9 Hypertensive chronic kidney disease with stage 1 through stage 4 chronic kidney disease, or unspecified chronic kidney disease; G89.29 Other chronic pain; G47.33 Obstructive sleep apnea (adult) (pediatric); F32.9 Major depressive disorder, single episode, unspecified; W18.39XA Other fall on same level, initial encounter; Y93.89 Activity, other specified; Y92.89 Other specified places as the place of occurrence of the external cause; Z95.5 Presence of coronary angioplasty implant and graft; Z83.3 Family history of diabetes mellitus; Z79.4 Long term (current) use of insulin; Z82.49 Family history of ischemic heart disease and other diseases of the circulatory system; Z91.14 Patient's other noncompliance with medication regimen; Z95.0 Presence of cardiac pacemaker; I25.2 Old myocardial infarction; Y99.8 Other external cause status
CPT/HCPCS: 36415; 71045; 80048; 80053; 81001; 82962; 83036; 84484; 85025; 87040; 87077; 87086; 87186; 93005; 99285; G0378; J0696; J1644; J0360; J1815; J7030

== ENCOUNTER 2021-04-13 23:54 | Inpatient (IN) | payer MEDICARE ==
[~2021-04-13] VITALS: Ht 157.5 cm; Wt 84.7 kg
[~2021-04-13 23:54] MED LIST changes: +ACID1TAB7 PO; +CEPH750C9 PO; +CYCL10TA2 PO; +INSU100C5 SQ-INSULIN; +INSU100I11 SQ-INSULIN; +LISI-170 PO; +MECL-101 PO; -OMEP40CA42 PO; +OMEP40CA8 PO
--- NOTE | 2021-04-14 | NUR ---
INITIAL PT CONTACT. PT BIBA C/O HIGH BLOOD SUGAR, N/V, ABD PAIN, HEADACHE. OUT OF RX X1 MONTH, BP MEDS AND INSULIN. PT REPORTS VOMIT TO BE BLOODY AND DARK BROWN IN COLOR, VOMIT BEGAN EARLIER TODAY. PT SITTING UPRIGHT ON GURNEY, NADN, VSS. PT PROVIDED WARM BLANKET, NO ADDITIONAL NEEDS AT THIS TIME. PIV STARTED UPON ARRIVAL, MEDICATED PER EMAR. CALL LIGHT AND BELONGINGS WITHIN REACH. ERP AT BEDSIDE.
[2021-04-14] MEDS ORDERED: ONDANSETRON 2MG/ML, 2ML ONE (00:13)
--- NOTE | 2021-04-14 00:25 | NUR ---
[facility] DAUGHTER: [phone]. WANTS UPDATES WHEN POSSIBLE.
[2021-04-14] MEDS ORDERED: SODIUM CHLORIDE 0.9% 1,000ML IVBOLUS ONE (00:30)
[2021-04-14] MEDS ORDERED: ONDANSETRON 2MG/ML, 2ML IVPush ONE (00:30)
[2021-04-14] MEDS ORDERED: PROMETHAZINE 25 MG/ML, 1ML IM ONE (00:30)
[2021-04-14] MEDS ORDERED: PROMETHAZINE 25 MG/ML, 1ML ONE (01:10)
[2021-04-14 01:24] LABS: BASOPHILS % (AUTO) 0 % (0-1); EOSINOPHILS % (AUTO) 1 % (1-7); LYMPHOCYTES % (AUTO) 9 % (22-44); MEAN CORPUSCULAR HEMOGLOBIN 29.7 pg (27.0-34.8); MEAN CORPUSCULAR HGB CONC 32.9 g/dL (32.4-35.8); MONOCYTES % (AUTO) 4 % (2-9); NEUTROPHILS % (AUTO) 87 % (42-75); PLATELET COUNT 215 x10^3/uL (130-400); RED BLOOD COUNT 4.62 x10^6/uL (3.82-5.3); RED CELL DISTRIBUTION WIDTH 13.3 % (9.6-15.2)
[2021-04-14 01:25] LABS: ACETONE, SERUM Negative (Negative)
[2021-04-14 01:32] LABS: ALANINE AMINOTRANSFERASE 11 U/L (12-78); ALBUMIN 2.8 g/dL (3.4-5.0); ANION GAP 7 mmol/L (5-15); CALCIUM 9.7 mg/dL (8.5-10.1); CHLORIDE 99 mmol/L (98-107); CREATININE 2.53 mg/dL (0.55-1.02)
[2021-04-14] MEDS ORDERED: NITROGLYCERIN OINT 2%, 1GM TP ONE ×2 (01:32→02:00)
[2021-04-14] MEDS ORDERED: LABETALOL 5MG/ML, 20ML ONE (01:33)
[2021-04-14 01:43] LABS: ALKALINE PHOSPHATASE 239 U/L (45-117); BILIRUBIN,TOTAL 0.4 mg/dL (0.2-1.0); TOTAL PROTEIN 7.4 g/dL (6.4-8.2); TROPONIN I < 0.015 ng/mL (0.000-0.045)
--- NOTE | 2021-04-14 01:43 | NUR ---
BEDSIDE REPORT GIVEN TO KARLA RAMIREZ
[2021-04-14 01:51] LABS: MICROSCOPIC AUTO
[2021-04-14] MEDS ORDERED: LABETALOL 5MG/ML, 20ML IVPush ONE ×2 (02:00→02:30)
--- NOTE | 2021-04-14 02:05 | NUR ---
PT APPEARS TO BE DECLINING, PT NOT FOLLOWING COMMANDS APPROPRIATELY ANYMORE, PTS BLOOD PRESSURE ELEVATED, PT A/OX3, MD NOTIFIED
--- NOTE | 2021-04-14 02:18 | NUR ---
PTS BLOOD PRESSURE STILL 214/100 AFTER INITIAL ADMINISTRATION OF LABETALOL, MD NOTIFIED AND MD ORDERED ANOTHER 20MG IV PUSH, THIS RN ADMINISTERED MEDICATION AT THIS TIME WILL CONTINUE TO MONITOR VS
[2021-04-14] MEDS ORDERED: INSULIN REGULAR 100 UNITS/ML, 3ML VIAL IVPush ONE (03:00)
[2021-04-14] MEDS ORDERED: INSULIN SINGLE DOSE, ER ONE (03:12)
[2021-04-14 04:30] VITALS: BP 173/81
[2021-04-14] MEDS ORDERED: hydrALAzine 20 MG/ML, 1ML IVPush PRN (05:30)
[2021-04-14] MEDS: HEPARIN 5,000 UNITS/ML, 1ML SQ SCH ×3 (05:49→21:29)
[2021-04-14] MEDS: LACTATED RINGERS 1,000 ML IV SCH ×3 (05:50→21:29)
[2021-04-14 07:34] VITALS: BP 116/82
[2021-04-14] MEDS: INSULIN REGULAR 100 UNITS/ML, 3ML VIAL SQ-INSULIN SCH ×4 (07:57→21:00)
[2021-04-14 08:37] LABS: BASOPHILS % (AUTO) 0 % (0-1); EOSINOPHILS % (AUTO) 0 % (1-7); LYMPHOCYTES % (AUTO) 6 % (22-44); MEAN CORPUSCULAR HEMOGLOBIN 29.7 pg (27.0-34.8); MEAN CORPUSCULAR HGB CONC 33.1 g/dL (32.4-35.8); MEAN PLATELET VOLUME 8.9 fL (7.4-10.4); MONOCYTES % (AUTO) 2 % (2-9); NEUTROPHILS % (AUTO) 91 % (42-75); PLATELET COUNT 203 x10^3/uL (130-400); RED BLOOD COUNT 4.32 x10^6/uL (3.82-5.3); RED CELL DISTRIBUTION WIDTH 13.1 % (9.6-15.2)
[2021-04-14] MEDS: LISINOPRIL 40 MG TABLET PO SCH (09:00)
[2021-04-14] MEDS: ISOSORBIDE MONONITRATE ER 30 MG TABLET PO SCH (09:00)
[2021-04-14] MEDS: AMLODIPINE 10 MG TAB PO SCH (09:00)
[2021-04-14] MEDS: CARVEDILOL 6.25 MG TABLET PO SCH ×2 (09:00→21:28)
[2021-04-14 09:45] VITALS: BP 109/53
[2021-04-14 12:38] LABS: ANION GAP 5 mmol/L (5-15); CALCIUM 9.4 mg/dL (8.5-10.1); CHLORIDE 107 mmol/L (98-107)
[2021-04-14 12:40] LABS: CREATININE 2.56 mg/dL (0.55-1.02)
[2021-04-14 13:08] VITALS: BP 111/69
[2021-04-14] MEDS ORDERED: CEFTRIAXONE 1,000 MG IM SCH (15:00)
[2021-04-14] MEDS: CEFTRIAXONE 1,000 MG in DEXTROSE 5% 50 ML IVPB SCH (17:08)
[2021-04-14 19:27] VITALS: BP 106/61
[2021-04-14] MEDS: ONDANSETRON 2MG/ML, 2ML IVPush PRN (21:55)
[2021-04-15 00:45] VITALS: BP 121/72
[2021-04-15] MEDS: HEPARIN 5,000 UNITS/ML, 1ML SQ SCH ×3 (05:15→21:47)
[2021-04-15] MEDS: LACTATED RINGERS 1,000 ML IV SCH (05:16)
[2021-04-15 06:22] LABS: CHLORIDE 106 mmol/L (98-107)
[2021-04-15 06:41] LABS: ALANINE AMINOTRANSFERASE 11 U/L (12-78); ALBUMIN 2.1 g/dL (3.4-5.0); ALKALINE PHOSPHATASE 103 U/L (45-117); ANION GAP 7 mmol/L (5-15); BILIRUBIN,TOTAL 0.4 mg/dL (0.2-1.0); CALCIUM 9.4 mg/dL (8.5-10.1); CHOL/HDL RATIO 3.6; CHOLESTEROL, TOTAL 198 mg/dL (140-239); CREATININE 2.47 mg/dL (0.55-1.02); HDL CHOL % 28 % (28-40); HDL CHOLESTEROL (DIRECT) 55 mg/dL (40-60); LDL CHOLESTEROL,CALCULATED 100 mg/dL (54-169); LDL/HDL RATIO 1.8 (0.5-3.0); TOTAL PROTEIN 5.7 g/dL (6.4-8.2); TRIGLYCERIDES 215 mg/dL (50-200); VLDL CHOLESTEROL 43 mg/dL (0-25)
[2021-04-15] MEDS: INSULIN REGULAR 100 UNITS/ML, 3ML VIAL SQ-INSULIN SCH ×4 (07:44→21:46)
[2021-04-15 08:25] VITALS: BP 145/76
[2021-04-15] MEDS: ISOSORBIDE MONONITRATE ER 30 MG TABLET PO SCH (09:00)
[2021-04-15] MEDS: AMLODIPINE 10 MG TAB PO SCH (09:04)
[2021-04-15] MEDS: CARVEDILOL 6.25 MG TABLET PO SCH ×2 (09:04→21:46)
[2021-04-15] MEDS: LISINOPRIL 40 MG TABLET PO SCH (09:04)
[2021-04-15 13:10] VITALS: BP 115/65
[2021-04-15] MEDS: CEFTRIAXONE 1,000 MG in DEXTROSE 5% 50 ML IVPB SCH (17:04)
[2021-04-15 21:42] VITALS: BP 185/74
[2021-04-15] MEDS: ASA/APAP/ CAFFEINE TABLET PO PRN (22:00)
[2021-04-15 22:54] VITALS: BP 157/81
[2021-04-16 00:45] VITALS: BP 151/80
[2021-04-16] MEDS: LACTATED RINGERS 1,000 ML IV SCH ×3 (00:52→21:18)
[2021-04-16] MEDS: HEPARIN 5,000 UNITS/ML, 1ML SQ SCH ×3 (05:01→21:16)
[2021-04-16 06:59] VITALS: BP 169/82
[2021-04-16] MEDS: CARVEDILOL 6.25 MG TABLET PO SCH ×2 (08:24→21:16)
[2021-04-16] MEDS: LISINOPRIL 40 MG TABLET PO SCH (08:24)
[2021-04-16] MEDS: AMLODIPINE 10 MG TAB PO SCH (08:24)
[2021-04-16] MEDS: ISOSORBIDE MONONITRATE ER 30 MG TABLET PO SCH (08:24)
[2021-04-16] MEDS: INSULIN REGULAR 100 UNITS/ML, 3ML VIAL SQ-INSULIN SCH ×4 (08:25→21:17)
[2021-04-16] MEDS: ONDANSETRON 2MG/ML, 2ML IVPush PRN (12:48)
[2021-04-16 13:07] VITALS: BP 102/62
[2021-04-16] MEDS: CEFTRIAXONE 1,000 MG in DEXTROSE 5% 50 ML IVPB SCH (16:53)
[2021-04-16 19:53] VITALS: BP 96/61
[2021-04-17 02:00] VITALS: BP 162/68
[2021-04-17] MEDS: LACTATED RINGERS 1,000 ML IV SCH ×3 (05:18→20:08)
[2021-04-17] MEDS: HEPARIN 5,000 UNITS/ML, 1ML SQ SCH ×3 (05:19→20:01)
[2021-04-17] MEDS: ISOSORBIDE MONONITRATE ER 30 MG TABLET PO SCH (07:48)
[2021-04-17] MEDS: LISINOPRIL 40 MG TABLET PO SCH (07:49)
[2021-04-17] MEDS: AMLODIPINE 10 MG TAB PO SCH (07:49)
[2021-04-17] MEDS: CARVEDILOL 6.25 MG TABLET PO SCH ×2 (07:49→20:00)
[2021-04-17 07:59] VITALS: BP 172/76
[2021-04-17] MEDS: INSULIN REGULAR 100 UNITS/ML, 3ML VIAL SQ-INSULIN SCH ×4 (08:16→20:04)
[2021-04-17 12:16] VITALS: BP 117/66
[2021-04-17] MEDS: ALUMINUM/MAG/SIMETHICONE 30 ML UDC PO PRN (12:29)
[2021-04-17] MEDS: OMEPRAZOLE 20 MG CAPSULE.DR PO SCH (16:14)
[2021-04-17] MEDS: CEFTRIAXONE 1,000 MG in DEXTROSE 5% 50 ML IVPB SCH (16:14)
[2021-04-17 20:25] VITALS: BP 151/69
[2021-04-18 02:34] VITALS: BP 155/70
[2021-04-18] MEDS: OMEPRAZOLE 20 MG CAPSULE.DR PO SCH ×2 (04:46→16:31)
[2021-04-18] MEDS: HEPARIN 5,000 UNITS/ML, 1ML SQ SCH ×3 (04:46→20:21)
[2021-04-18] MEDS: LACTATED RINGERS 1,000 ML IV SCH ×3 (04:49→20:21)
[2021-04-18] MEDS: INSULIN REGULAR 100 UNITS/ML, 3ML VIAL SQ-INSULIN SCH ×4 (07:32→20:22)
[2021-04-18 07:59] VITALS: BP 150/83
[2021-04-18] MEDS: ALUMINUM/MAG/SIMETHICONE 30 ML UDC PO PRN (09:07)
[2021-04-18] MEDS: ISOSORBIDE MONONITRATE ER 30 MG TABLET PO SCH (09:08)
[2021-04-18] MEDS: AMLODIPINE 10 MG TAB PO SCH (09:08)
[2021-04-18] MEDS: CARVEDILOL 6.25 MG TABLET PO SCH ×2 (09:08→20:21)
[2021-04-18] MEDS: LISINOPRIL 40 MG TABLET PO SCH (09:08)
[2021-04-18 14:40] VITALS: BP 104/62
[2021-04-18] MEDS: ASA/APAP/ CAFFEINE TABLET PO PRN ×2 (15:37→16:27)
[2021-04-18] MEDS: CEFTRIAXONE 1,000 MG in DEXTROSE 5% 50 ML IVPB SCH (16:31)
[2021-04-18 16:33] VITALS: BP 130/73
[2021-04-18 19:20] VITALS: BP 132/74
[2021-04-19 01:02] VITALS: BP 140/75
[2021-04-19] MEDS: LACTATED RINGERS 1,000 ML IV SCH ×3 (05:12→23:24)
[2021-04-19] MEDS: OMEPRAZOLE 20 MG CAPSULE.DR PO SCH ×2 (05:12→16:02)
[2021-04-19] MEDS: HEPARIN 5,000 UNITS/ML, 1ML SQ SCH ×3 (05:12→21:27)
[2021-04-19] MEDS: INSULIN REGULAR 100 UNITS/ML, 3ML VIAL SQ-INSULIN SCH ×4 (07:19→21:21)
[2021-04-19 08:29] VITALS: BP 138/72
[2021-04-19] MEDS: CARVEDILOL 6.25 MG TABLET PO SCH ×2 (09:17→21:21)
[2021-04-19] MEDS: ISOSORBIDE MONONITRATE ER 30 MG TABLET PO SCH (09:17)
[2021-04-19] MEDS: AMLODIPINE 10 MG TAB PO SCH (09:17)
[2021-04-19] MEDS: LISINOPRIL 40 MG TABLET PO SCH (09:17)
[2021-04-19] MEDS ORDERED: OMEP-110 PO (12:49)
[2021-04-19] MEDS ORDERED: CIPR500T87 PO (12:51)
[2021-04-19] MEDS ORDERED: ATOR10TA9 PO (12:58)
[2021-04-19 13:22] VITALS: BP 101/63
[2021-04-19] MEDS: CEFTRIAXONE 1,000 MG in DEXTROSE 5% 50 ML IVPB SCH (16:02)
[2021-04-19 18:42] VITALS: BP 125/72
[2021-04-20 01:23] VITALS: BP 133/73
[2021-04-20] MEDS: HEPARIN 5,000 UNITS/ML, 1ML SQ SCH ×2 (05:53→12:27)
[2021-04-20] MEDS: OMEPRAZOLE 20 MG CAPSULE.DR PO SCH (05:53)
[2021-04-20 07:00] VITALS: BP 154/90
[2021-04-20] MEDS: AMLODIPINE 10 MG TAB PO SCH (07:51)
[2021-04-20] MEDS: CARVEDILOL 6.25 MG TABLET PO SCH (07:51)
[2021-04-20] MEDS: INSULIN REGULAR 100 UNITS/ML, 3ML VIAL SQ-INSULIN SCH ×2 (07:51→10:50)
[2021-04-20] MEDS: LISINOPRIL 40 MG TABLET PO SCH (07:51)
[2021-04-20] MEDS: ISOSORBIDE MONONITRATE ER 30 MG TABLET PO SCH (07:52)
[2021-04-20] MEDS: LACTATED RINGERS 1,000 ML IV SCH (07:52)
[2021-04-20 12:11] VITALS: BP 113/61
== END 2021-04-20 13:45 | DRG 637 ==
LOC: ED 04-14 00:26 → 4EST 04-14 03:28
PROVIDERS: ADMIT Internal Medicine; ATTEND Hospitalist
DX: E11.00 Type 2 diabetes mellitus with hyperosmolarity without nonketotic hyperglycemic-hyperosmolar coma (NKHHC) (principal); G93.41 Metabolic encephalopathy; N39.0 Urinary tract infection, site not specified; E11.22 Type 2 diabetes mellitus with diabetic chronic kidney disease; E78.5 Hyperlipidemia, unspecified; E86.0 Dehydration; I12.9 Hypertensive chronic kidney disease with stage 1 through stage 4 chronic kidney disease, or unspecified chronic kidney disease; B96.20 Unspecified Escherichia coli [E. coli] as the cause of diseases classified elsewhere; K21.9 Gastro-esophageal reflux disease without esophagitis; N18.30 Chronic kidney disease, stage 3 unspecified; Z59.0 Homelessness; Z91.14 Patient's other noncompliance with medication regimen
CPT/HCPCS: 36415; 70450; 71045; 80048; 80053; 80061; 81001; 82010; 82803; 82947; 82962; 83036; 83690; 83735; 84100; 84443; 84484; 85025; 93005; 96361; 96374; 96375; 99285; G0378; J0696; J1644; J1815; J2405; J2550; J0360; J7030; J7120